=== PATIENT | male | born 1935 | race Asian ===

== ENCOUNTER 2019-10-02 19:11 | Inpatient (IN) | payer OTHER, MEDICARE ==
[~2019-10-02] VITALS: Ht 170.2 cm; Wt 61.2 kg
[2019-10-02 19:31] LABS: BASOPHILS % (AUTO) 0.3 % (0.0-2.0); EOSINOPHILS % (AUTO) 0.2 % (0.0-7.0); HEMATOCRIT 31.3 % (36.7-47.1); HEMOGLOBIN 10.6 g/dL (12.5-16.3); LYMPHOCYTES # (AUTO) 0.2 K/uL (20.0-40.0); LYMPHOCYTES % (AUTO) 2.9 % (20.5-51.5); MEAN CORPUSCULAR HEMOGLOBIN 29.8 uug (23.8-33.4); MEAN CORPUSCULAR HGB CONC 34 g/dL (32.5-36.3); MEAN CORPUSCULAR VOLUME 88.4 fL (73.0-96.2); MONOCYTES # (AUTO) 0.3 K/uL (2.0-10.0); MONOCYTES % (AUTO) 4.2 % (0.0-11.0); NEUTROPHILS # (AUTO) 6.6 K/uL (1.8-8.9); NEUTROPHILS % (AUTO) 92.4 % (38.5-71.5); PLATELET COUNT (AUTO) 87 K/uL (152-348); RED BLOOD CELL COUNT(AUTO) 3.54 MIL/uL (4.06-5.63); WHITE BLOOD COUNT (AUTO) 7.2 K/uL (3.6-10.2)
--- NOTE | 2019-10-02 19:43 | NUR ---
Urine collected and sent to lab
[2019-10-02 19:44] LABS: CARBON DIOXIDE 24 mmol/L (21-32); CHLORIDE 101 mmol/L (98-107); CREATININE 1.5 mg/dL (0.6-1.3); GLUCOSE 112 mg/dL (74-106); POTASSIUM 4.4 mmol/L (3.5-5.1); UREA NITROGEN, BLOOD 49 mg/dL (7-18)
[2019-10-02 19:50] LABS: ALANINE AMINOTRANSFERASE 103 U/L (16-63); ALKALINE PHOSPHATASE 596 U/L (50-136); ASPARTATE AMINOTRANSFERASE 139 U/L (15-37); BILIRUBIN,DIRECT 0.5 mg/dL (0.0-0.2); BILIRUBIN,TOTAL 0.9 mg/dL (0.2-1.0); TOTAL PROTEIN, SERUM 6.7 g/dL (6.4-8.2)
[2019-10-02 20:04] LABS: *BILIRUBIN,URIN NEGATIVE (NEGATIVE); *BLOOD, URINE NEGATIVE (NEGATIVE); *CLARITY,URINE CLEAR (CLEAR); *COLOR,URINE YELLOW (YELLOW); *KETONES,URINE NEGATIVE (NEGATIVE); *UROBILINOGEN,URINE 0.2 E.U./dl (NORMAL); LEUKOCYTE ESTERASE ,URINE NEGATIVE (NEGATIVE); NITRITE, URINE NEGATIVE (NEGATIVE); PH,URINE 5.5 (5.0-8.0); UGLUCOSE NEGATIVE (NEGATIVE)
[2019-10-02 20:10] LABS: WBC,URINE NONE SEEN /HPF (0-3)
[2019-10-02 20:11] LABS: BACTERIA,URINE NONE SEEN /HPF (NONE SEEN); RBC,URINE 0-3 /HPF (0-3)
[2019-10-02] MEDS ORDERED: IV NORMAL SALINE 1000 ML BAG IV ONE (20:30)
--- NOTE | 2019-10-02 20:47 | NUR ---
Patient taken to CT scan in stable conditon
[2019-10-02 20:48] LABS: LYMPHOCYTES % (MANUAL) 1 % (20-40); NEUTROPHILS % (MANUAL) 99 % (42-75)
--- NOTE | 2019-10-02 20:54 | NUR ---
Spoke with Imani from [facility] to give clinicals
[2019-10-02] MEDS ORDERED: MEROPENEM 1,000 MG in IV NORMAL SALINE 100 ML IV ONE (21:15)
[2019-10-02] MEDS ORDERED: VANCOMYCIN IV 1,000 MG in IV DEXTROSE 5% 250 ML IV ONE (21:15)
[2019-10-02] MEDS ORDERED: MEROPENEM 1GM/NS 100ML IVPB **ER PYXIS ONLY IV ONE (21:17)
[2019-10-02] MEDS ORDERED: VANCOMYCIN IV 200 ML ONE (21:18)
--- NOTE | 2019-10-02 21:55 | NUR ---
Patient back from CT scan in stable condition
--- NOTE | 2019-10-02 22:08 | NUR ---
Called [facility] for panel placement
--- NOTE | 2019-10-02 23:25 | NUR ---
Vancomycin IV to finish infusing in Telemetry. Yunier PARHAM aware.
[2019-10-03] MEDS ORDERED: MORPHINE SULFATE 2 MG/1 ML DISP.SYRIN IV PRN (00:30)
[2019-10-03] MEDS ORDERED: ACETAMINOPHEN 325 MG TABLET PO PRN (00:30)
[2019-10-03] MEDS ORDERED: ONDANSETRON 4 MG/2 ML VIAL IV PRN (00:30)
[2019-10-03] MEDS ORDERED: PIPERACILLIN/TAZO 2.25 G in IV DEXTROSE 5% 50 ML IV SCH (00:30)
[2019-10-03] MEDS ORDERED: IV D5/ 0.9% NACL 1,000 ML IV SCH (00:30)
[2019-10-03 00:34] VITALS: BP 121/53
[2019-10-03] MEDS ORDERED: PIPERACILLIN/TAZO 2.25 G in IV DEXTROSE 5% 50 ML IV ONE ×2 (02:00→10:00)
[2019-10-03] MEDS ORDERED: PIPERACILLIN/TAZO 2.25 GM VIAL ONE (02:36)
[2019-10-03 04:00] VITALS: BP 120/60
--- NOTE | 2019-10-03 06:39 | NUR ---
Admitted to room 304; accompanied by family; timber spotter phone at bedside; most translation by Estefany Stahl RN; no fever since admission; kept NPO; safety maintained; tolerated iv antibiotics; continue to monitor; safety maintained.
[2019-10-03] MEDS ORDERED: IV D5/ 0.9% NACL 1,000 ML IV PRN (07:05)
[2019-10-03 07:22] LABS: BILIRUBIN,TOTAL 0.8 mg/dL (0.2-1.0); MAGNESIUM 1.9 mg/dL (1.8-2.4); PHOSPHOROUS 2.9 mg/dL (2.5-4.9); TOTAL PROTEIN, SERUM 5.3 g/dL (6.4-8.2)
[2019-10-03 07:30] VITALS: BP 133/51
[2019-10-03 07:31] LABS: THYROID STIMULATING HORMONE 5.447 mIU/mL (0.358-3.740)
[2019-10-03 07:38] LABS: BASOPHILS % (AUTO) 0.1 % (0.0-2.0); EOSINOPHILS % (AUTO) 0.2 % (0.0-7.0); LYMPHOCYTES # (AUTO) 0.3 K/uL (20.0-40.0); LYMPHOCYTES % (AUTO) 3.7 % (20.5-51.5); MEAN CORPUSCULAR HEMOGLOBIN 29.7 uug (23.8-33.4); MEAN CORPUSCULAR HGB CONC 34 g/dL (32.5-36.3); MEAN CORPUSCULAR VOLUME 88.6 fL (73.0-96.2); MONOCYTES # (AUTO) 0.6 K/uL (2.0-10.0); MONOCYTES % (AUTO) 8.5 % (0.0-11.0); NEUTROPHILS # (AUTO) 6.1 K/uL (1.8-8.9); NEUTROPHILS % (AUTO) 87.5 % (38.5-71.5); PLATELET COUNT (AUTO) 69 K/uL (152-348)
--- NOTE | 2019-10-03 08:00 | NUR ---
AWAKE ALERT AND VERBALLY RESPONSIVE, NO SS OF PAIN OR DISTRESS. REMAINS SR ON MONITOR. AFEBRILE. NPO TILL FURTHER ORDERS. IVF AT 75ML/HR
[2019-10-03 08:17] LABS: HEMATOCRIT 25.6 % (36.7-47.1); HEMOGLOBIN 8.6 g/dL (12.5-16.3)
[2019-10-03] MEDS: PANTOPRAZOLE SODIUM 40 MG VIAL IV SCH (08:28)
[2019-10-03 09:20] LABS: BAND % (MANUAL) 2 % (0-10); LYMPHOCYTES % (MANUAL) 2 % (20-40); MONOCYTES % (MANUAL) 5 % (2-10); NEUTROPHILS % (MANUAL) 91 % (42-75)
--- NOTE | 2019-10-03 11:00 | NUR ---
STATUS CHANGE TO [facility]
[2019-10-03] MEDS: POTASSIUM CHLORIDE 20 MEQ TAB.PRT.SR PO SCH ×3 (11:22→16:26)
[2019-10-03 11:30] VITALS: BP 153/58
--- NOTE | 2019-10-03 12:00 | NUR ---
SEEN BY DR VICENTE NOTED LABS WITH ORDERS SEE NOTES
[2019-10-03] MEDS ORDERED: NIFEdipine XL 60 MG TABSR PO SCH ×2 (12:30→20:17)
[2019-10-03 15:35] VITALS: BP 134/57
--- NOTE | 2019-10-03 16:31 | NUR ---
AWAKE ALERT AND VERBALLY RESPONSIVE, REQUIRES TECHNICAL SERVICES ANALYST. PLEASANT AND COOPERATIVE. NO FEVER DURING THE DAY. TOLERATING IV ZOSYN
[2019-10-03] MEDS: PIPERACILLIN/TAZOBACTAM/D5W 3.375 G in PREMIXED 1 EACH IV SCH (17:05)
[2019-10-03 20:01] VITALS: BP 114/48
[2019-10-03] MEDS ORDERED: NIFEdipine XL 60 MG TABSR PO PRN (20:31)
--- NOTE | 2019-10-03 20:33 | NUR ---
PER DAUGHTER REQUEST BEN NUNEZ. DR. VICENTE ORDERED NIFEDIPINE XL 60 MG TO BE ADMINISTERED AT SAME TIME EVERYDAY 12:30PM. IF SBP <140 AT 12:30PM NIFEDIPINE XL 30MG TO BE GIVEN INSTEAD OF NIFEDIPINE XL 60 MG.
--- NOTE | 2019-10-03 20:34 | NUR ---
CONFIRMED WITH MAURO IN PHARMACY ON INPUTTING ORDERS FOR NIFEDIPINE XL 60 MG AND NIFEDIPINE XL 30MG.
[2019-10-04] MEDS: PIPERACILLIN/TAZOBACTAM/D5W 3.375 G in PREMIXED 1 EACH IV SCH ×3 (02:18→17:14)
[2019-10-04 05:16] VITALS: BP 111/50
--- NOTE | 2019-10-04 05:30 | NUR ---
PATIENT V/S STABLE THROUGHOUT NIGHT. NO S/S OF ACUTE DISTRESS. BED IN LOWEST POSITION, SIDE RAILS UPX2, BED ALARM ON. ALL MEDICATIONS ADMINISTERED. WILL CONTINUE TO MONITOR AND ENDORSE ACCORDINGLY.
[2019-10-04] MEDS: LEVOTHYROXINE SODIUM 50 MCG TABLET PO SCH (06:01)
[2019-10-04 06:15] LABS: BASOPHILS % (AUTO) 0.1 % (0.0-2.0); EOSINOPHILS % (AUTO) 0.2 % (0.0-7.0); HEMATOCRIT 27.2 % (36.7-47.1); LYMPHOCYTES # (AUTO) 0.7 K/uL (20.0-40.0); MEAN CORPUSCULAR HEMOGLOBIN 29.7 uug (23.8-33.4); MEAN CORPUSCULAR HGB CONC 33 g/dL (32.5-36.3); MEAN CORPUSCULAR VOLUME 89.8 fL (73.0-96.2); MONOCYTES # (AUTO) 0.9 K/uL (2.0-10.0); MONOCYTES % (AUTO) 12.2 % (0.0-11.0); NEUTROPHILS # (AUTO) 6.1 K/uL (1.8-8.9); NEUTROPHILS % (AUTO) 78.5 % (38.5-71.5); PLATELET COUNT (AUTO) 71 K/uL (152-348); RED BLOOD CELL COUNT(AUTO) 3.02 MIL/uL (4.06-5.63); WHITE BLOOD COUNT (AUTO) 7.7 K/uL (3.6-10.2)
[2019-10-04 06:40] LABS: POTASSIUM 3.4 mmol/L (3.5-5.1)
--- NOTE | 2019-10-04 06:51 | NUR ---
critical lab value reported for Mg 1.7 Addendum: 10/04/19 at 0704 by DEBBIE FOSS RN INCORRECT PATIENT
--- NOTE | 2019-10-04 07:04 | NUR ---
DR. VICENTE ORDERS FOR NIFEDIPINE XL 60MG AND XL 30MG ENDORSED TO ONCOMING NURSE.
[2019-10-04] MEDS: FAMOTIDINE 20 MG TABLET PO SCH (08:02)
[2019-10-04] MEDS: DOCUSATE SODIUM 100 MG CAPSULE PO SCH (08:02)
[2019-10-04] MEDS: HYDROXYCHLOROQUINE SULFATE 200 MG TABLET PO SCH (08:02)
[2019-10-04] MEDS: PANTOPRAZOLE SODIUM 40 MG VIAL IV SCH (08:13)
[2019-10-04] MEDS ORDERED: POTASSIUM CHLORIDE 20 MEQ TAB.PRT.SR PO ONE (08:15)
[2019-10-04] MEDS ORDERED: CLOPIDOGREL 75 MG TABLET PO SCH (09:00)
[2019-10-04] MEDS ORDERED: PANTOPRAZOLE SODIUM 40 MG VIAL IV SCH (09:00)
[2019-10-04] MEDS: CLOPIDOGREL 75 MG TABLET PO SCH (09:01)
[2019-10-04 09:39] LABS: BILIRUBIN,DIRECT 0.2 mg/dL (0.0-0.2); BILIRUBIN,TOTAL 0.6 mg/dL (0.2-1.0); TOTAL PROTEIN, SERUM 5.2 g/dL (6.4-8.2)
[2019-10-04] MEDS: POTASSIUM PHOSPHATE MM 5 MMOL in IV DEXTROSE 5% 100 ML IV SCH ×4 (10:44→15:33)
[2019-10-04 11:28] VITALS: BP 114/53
[2019-10-04] MEDS ORDERED: NIFEdipine XL 60 MG TABSR PO PRN (12:30)
[2019-10-04] MEDS ORDERED: NIFEdipine XL 30 MG TABSR PO PRN (12:30)
[2019-10-04 16:15] VITALS: BP 124/62
--- NOTE | 2019-10-04 19:30 | NUR ---
RECEIVED PT IN NO ACUTE DISTRESS. IV INTACT. SAFETY AND COMFORT PROVIDED. WILL CONTINUE TO MONITOR.
[2019-10-04 21:21] VITALS: BP 130/53
--- NOTE | 2019-10-04 21:24 | NUR ---
RECEIVED PT IN NO ACUTE DISTRESS. IV INTACT. SAFETY AND COMFORT PROVIDED. WILL CONTINUE TO MONITOR.
--- NOTE | 2019-10-04 21:50 | NUR ---
FAMILY DOESN'T WANT ME TO GIVE BLOOD PRESSURE MEDICATION TO PT. CHARGE NURSE AWARE. PT IN NO ACUTE DISTRESS. WILL CONTINUE TO MONITOR.
[2019-10-05] MEDS: PIPERACILLIN/TAZOBACTAM/D5W 3.375 G in PREMIXED 1 EACH IV SCH ×3 (01:21→19:38)
[2019-10-05 04:37] VITALS: BP 138/65
[2019-10-05 05:45] LABS: BASOPHILS % (AUTO) 0.2 % (0.0-2.0); EOSINOPHILS % (AUTO) 0.4 % (0.0-7.0); HEMATOCRIT 27.1 % (36.7-47.1); HEMOGLOBIN 9.2 g/dL (12.5-16.3); LYMPHOCYTES # (AUTO) 0.9 K/uL (20.0-40.0); LYMPHOCYTES % (AUTO) 9.5 % (20.5-51.5); MEAN CORPUSCULAR HEMOGLOBIN 29.7 uug (23.8-33.4); MEAN CORPUSCULAR HGB CONC 34 g/dL (32.5-36.3); MEAN CORPUSCULAR VOLUME 87.9 fL (73.0-96.2); MONOCYTES # (AUTO) 1.5 K/uL (2.0-10.0); MONOCYTES % (AUTO) 15.5 % (0.0-11.0); NEUTROPHILS # (AUTO) 7.1 K/uL (1.8-8.9); NEUTROPHILS % (AUTO) 74.4 % (38.5-71.5); RED BLOOD CELL COUNT(AUTO) 3.08 MIL/uL (4.06-5.63); WHITE BLOOD COUNT (AUTO) 9.6 K/uL (3.6-10.2)
[2019-10-05 05:54] LABS: PLATELET COUNT (AUTO) 84 K/uL (152-348)
[2019-10-05 05:58] LABS: BILIRUBIN,DIRECT 0.3 mg/dL (0.0-0.2); BILIRUBIN,TOTAL 0.8 mg/dL (0.2-1.0); PHOSPHOROUS 3.1 mg/dL (2.5-4.9); POTASSIUM 3.8 mmol/L (3.5-5.1); TOTAL PROTEIN, SERUM 5.1 g/dL (6.4-8.2)
--- NOTE | 2019-10-05 06:13 | NUR ---
PT SLEPT INTERMITTENTLY. PT IN NO ACUTE DISTRESS. IV INTACT. PRESCRIBED MEDICATION GIVEN AND PT TOLERATED IT WELL. IMITREX GIVEN. .PT TOLERATED IT WELL.. PT REQUESTING IV BENADRYL. SAFETY AND COMFORT PROVIDED. WILL ENDORSE TO INCOMING NURSE FOR CONTINUITY OF CARE. Addendum: 10/05/19 at 0614 by KINA BURGESS RN WRONG PT
--- NOTE | 2019-10-05 06:14 | NUR ---
PT SLEPT INTERMITTENTLY. PT IN NO ACUTE DISTRESS. IV INTACT. PRESCRIBED MEDICATION GIVEN AND PT TOLERATED IT WELL. PT COMPLIANT WITH CARE.SAFETY AND COMFORT PROVIDED. WILL ENDORSE TO INCOMING NURSE FOR CONTINUITY OF CARE.
[2019-10-05] MEDS: LEVOTHYROXINE SODIUM 50 MCG TABLET PO SCH (06:18)
[2019-10-05 06:46] LABS: LYMPHOCYTES % (MANUAL) 9 % (20-40); MONOCYTES % (MANUAL) 17 % (2-10); NEUTROPHILS % (MANUAL) 74 % (42-75)
--- NOTE | 2019-10-05 07:20 | NUR ---
RECEIVED PATIENT IN BED AWAKE AND ALERT. NO C/O PAIN AND NO S/S OF ACUTE DISTRESS NOTED AT THIS TIME. KEPT CLEAN AND DRY AT ALL TIMES. CALL LIGHT WITHIN REACH, SAFETY AND COMFORT PROVIDED. CONTINUE TO MONITOR.
[2019-10-05] MEDS: DOCUSATE SODIUM 100 MG CAPSULE PO SCH ×2 (08:16→08:48)
[2019-10-05] MEDS: FAMOTIDINE 20 MG TABLET PO SCH ×2 (08:16→08:49)
[2019-10-05] MEDS: CLOPIDOGREL 75 MG TABLET PO SCH ×2 (08:16→08:49)
[2019-10-05] MEDS: HYDROXYCHLOROQUINE SULFATE 200 MG TABLET PO SCH ×2 (08:16→08:49)
[2019-10-05] MEDS: CLONIDINE HCL 0.1 MG TABLET PO PRN ×2 (13:37→20:15)
[2019-10-05 15:43] VITALS: BP 151/52
--- NOTE | 2019-10-05 18:48 | NUR ---
DR. VICENTE, DISCONTINUE THE DISCHARGE TODAY.
--- NOTE | 2019-10-05 19:45 | NUR ---
PATIENT ALERT ORIENTED, SPEAK MANDARIN BUT UNDERSTAND SAO TOMEAN. FAMILY AT BEDSIDE, PATIENT HAS ELEVATED BP, DENIES PAIN AND DISCOMFORT. PATIENT WILL BE MEDICATED FOR ELEVATED BP ORDERED. PATIENT CONTINENT OF BLADDER, USES URINAL FOR BLADDER ELIMINATIONS. CALL LIGHT WITHIN REACH.
[2019-10-05 20:15] VITALS: BP 165/118
--- NOTE | 2019-10-05 20:15 | NUR ---
PATIENT BP ELEVATED, 165/118, PATIENT ASYMPTOMATIC, NO HEADACHES, NO DIZZINESS, NO VOMITING NOTED. PATIENT WAS GIVEN CLONIDINE 0.1MG PO ORDERED. WILL CONT TO MONITOR.
[2019-10-05 20:58] VITALS: BP 158/67
--- NOTE | 2019-10-05 21:00 | NUR ---
PATIENT CURRENT BP 158/67 HR 77, O2 SAT 98% RA, T-98.2, PATIENT DENIES PAIN, NO RECTAL BLEEDING NOTED AT THIS TIME. PATIENT BED PADS WAS CHANGED DUE SOILAGE, CONT TO MONITOR.
[2019-10-06] MEDS: PIPERACILLIN/TAZOBACTAM/D5W 3.375 G in PREMIXED 1 EACH IV SCH (02:00)
--- NOTE | 2019-10-06 05:14 | NUR ---
PATIENT ALERT ORIENTED, DENIES PAIN AT THIS TIME. PATIENT ASSISTED WITH BEDSIDE COMMODE FOR BOWEL ELIMINATIONS. PATIENT HAS MEDIUM AMOUNT OF BM WITH SMALL AMOUNT OF BLOOD TINGE COLOR FLUIDS. PATIENT HAS MULTIPLE EPISODE OF RECTAL DISCHARGE COLOR PALE COLOR BLOOD IN SMALL AMOUNT. PATIENT RENDERED GOOD MIRTHA CARE. CONT TO MONITOR.
[2019-10-06] MEDS: LEVOTHYROXINE SODIUM 50 MCG TABLET PO SCH (06:29)
--- NOTE | 2019-10-06 07:15 | NUR ---
Received patient in bed, awake and verbally responsive. No signs of distress noted. No SOB. No complain of Pain or discomfort. kept the call light within easy reach. kept the bed in lowest position. Will continue to monitor.
[2019-10-06] MEDS: DOCUSATE SODIUM 100 MG CAPSULE PO SCH (08:12)
[2019-10-06] MEDS: FAMOTIDINE 20 MG TABLET PO SCH (08:12)
[2019-10-06] MEDS: CLOPIDOGREL 75 MG TABLET PO SCH (08:13)
[2019-10-06 08:16] VITALS: BP 156/60
[2019-10-06] MEDS: CLONIDINE HCL 0.1 MG TABLET PO PRN (08:16)
[2019-10-06] MEDS: HYDROXYCHLOROQUINE SULFATE 200 MG TABLET PO SCH (08:57)
--- NOTE | 2019-10-06 10:53 | NUR ---
Patient in Bed, awake and verbally responsive, family at bedside. No signs of Distress noted. No SOB. No complain of Pain or discomfort. Patient with Order to be discharge to Home today, Family is aware, Discharge instruction given to patient and daughter (RP) and verbalized Understanding. All belongings was sent and signed with patient. Removed IV site and wrist band. Patient left in stable condition via private car.
== END 2019-10-06 10:55 | disposition home health service (06) | DRG 720 ==
LOC: ER 19:13 → TELE3 23:13 → UNDOADMIN 23:13 → TELE-TD3 23:14 → MEDSURG3 10-03 10:02
PROVIDERS: ADMIT Internal Medicine; ATTEND Internal Medicine
DX: A41.51 Sepsis due to Escherichia coli [E. coli] (principal); N17.0 Acute kidney failure with tubular necrosis; E43 Unspecified severe protein-calorie malnutrition; G93.41 Metabolic encephalopathy; C78.7 Secondary malignant neoplasm of liver and intrahepatic bile duct; C20 Malignant neoplasm of rectum; D63.8 Anemia in other chronic diseases classified elsewhere; D68.59 Other primary thrombophilia; K52.9 Noninfective gastroenteritis and colitis, unspecified; I69.341 Monoplegia of lower limb following cerebral infarction affecting right dominant side; M06.9 Rheumatoid arthritis, unspecified; R65.20 Severe sepsis without septic shock; E78.5 Hyperlipidemia, unspecified; E03.9 Hypothyroidism, unspecified; Z79.899 Other long term (current) drug therapy; I49.3 Ventricular premature depolarization; Z68.21 Body mass index [BMI] 21.0-21.9, adult; Z79.890 Hormone replacement therapy; Z79.82 Long term (current) use of aspirin; E87.6 Hypokalemia; Z79.02 Long term (current) use of antithrombotics/antiplatelets; M62.50 Muscle wasting and atrophy, not elsewhere classified, unspecified site; M19.90 Unspecified osteoarthritis, unspecified site
CPT/HCPCS: 36415; 70030-TC; 71045; 71250; 83605; 83690; 83735; 84100; 84443; 85025; 87040; 87077; 87086; 87400; 93005; A4663; C9113; G0378; J2185; J2543; J3370; J3490; J7030; J7040; J7042; J7060

== ENCOUNTER 2019-10-07 19:21 | Inpatient (IN) | payer OTHER, MEDICARE ==
[~2019-10-07] VITALS: Ht 172.7 cm; Wt 61.8 kg
[~2019-10-07 19:21] MED LIST: DOCU100C36 PO; FAMO-132 PO; LEVO500T2 PO; LEVO50TA8 PO; NIFE-60 PO; NIFE60TA83 PO
--- NOTE | 2019-10-07 19:40 | NUR ---
Dr. Ramirez at bedside for MSE.
--- NOTE | 2019-10-07 20:04 | NUR ---
Pt refused chest xray. made aware.
[2019-10-07 20:06] LABS: *BILIRUBIN,URIN NEGATIVE (NEGATIVE); *BLOOD, URINE NEGATIVE (NEGATIVE); *CLARITY,URINE CLEAR (CLEAR); *COLOR,URINE DARK YELLOW (YELLOW); *KETONES,URINE NEGATIVE (NEGATIVE); *UROBILINOGEN,URINE 0.2 E.U./dl (NORMAL); LEUKOCYTE ESTERASE ,URINE NEGATIVE (NEGATIVE); NITRITE, URINE NEGATIVE (NEGATIVE); PH,URINE 5.5 (5.0-8.0); UGLUCOSE NEGATIVE (NEGATIVE)
[2019-10-07 20:07] LABS: BASOPHILS % (AUTO) 0.3 % (0.0-2.0); EOSINOPHILS % (AUTO) 0.5 % (0.0-7.0); HEMOGLOBIN 9.4 g/dL (12.5-16.3); LYMPHOCYTES # (AUTO) 0.7 K/uL (20.0-40.0); LYMPHOCYTES % (AUTO) 7.8 % (20.5-51.5); MEAN CORPUSCULAR HEMOGLOBIN 29.4 uug (23.8-33.4); MEAN CORPUSCULAR HGB CONC 34 g/dL (32.5-36.3); MEAN CORPUSCULAR VOLUME 87.8 fL (73.0-96.2); MONOCYTES # (AUTO) 0.6 K/uL (2.0-10.0); MONOCYTES % (AUTO) 7.3 % (0.0-11.0); NEUTROPHILS # (AUTO) 7.1 K/uL (1.8-8.9); NEUTROPHILS % (AUTO) 84.1 % (38.5-71.5); PLATELET COUNT (AUTO) 174 K/uL (152-348); RED BLOOD CELL COUNT(AUTO) 3.19 MIL/uL (4.06-5.63); WHITE BLOOD COUNT (AUTO) 8.5 K/uL (3.6-10.2)
[2019-10-07 20:11] LABS: CARBON DIOXIDE 22 mmol/L (21-32); CHLORIDE 104 mmol/L (98-107); CREATININE 1.7 mg/dL (0.6-1.3); GLUCOSE 102 mg/dL (74-106); POTASSIUM 4.2 mmol/L (3.5-5.1); UREA NITROGEN, BLOOD 40 mg/dL (7-18)
[2019-10-07 20:16] LABS: COARSE GRANULAR CASTS,URINE 0-3 /LPF; MUCUS,URINE MANY /LPF (0-FEW); RBC,URINE 0-3 /HPF (0-3); SQUAMOUS EPITHELIAL CELL,UR FEW /HPF (NONE SEEN); WBC,URINE 0-3 /HPF (0-3)
--- NOTE | 2019-10-07 20:18 | NUR ---
Ultrasound at bedside.
[2019-10-07 20:23] LABS: ALANINE AMINOTRANSFERASE 77 U/L (16-63); ALKALINE PHOSPHATASE 970 U/L (50-136); ASPARTATE AMINOTRANSFERASE 130 U/L (15-37); BILIRUBIN,DIRECT 0.7 mg/dL (0.0-0.2); BILIRUBIN,TOTAL 1.1 mg/dL (0.2-1.0); TOTAL PROTEIN, SERUM 6.2 g/dL (6.4-8.2)
--- NOTE | 2019-10-07 20:47 | NUR ---
Dr. Ramirez on panel call with Dr. Alba. Patient accepted for admission to [facility], diagnosis: generalized weakness. Insurance authorization pending.
[2019-10-07] MEDS ORDERED: CEFTRIAXONE 1 G VIAL ONE (20:58)
[2019-10-07] MEDS ORDERED: CEFTRIAXONE 1 G in IV DEXTROSE 5% 50 ML IV ONE (21:00)
--- NOTE | 2019-10-07 21:03 | NUR ---
Received authorization for admission from [employer], spoke with Hazel, did not give authorization number.
--- NOTE | 2019-10-07 21:18 | NUR ---
Called [facility] transfer center, spoke with Malvin, faxed pt face sheet and clinical summary to
--- NOTE | 2019-10-07 21:30 | NUR ---
Per daughter, will stay in [place], will try to arrange transfer to [facility] tomorrow.
--- NOTE | 2019-10-07 21:42 | NUR ---
Report given to Sarah PARHAM Medsurg.
--- NOTE | 2019-10-07 22:10 | NUR ---
Patient received into care from ER via [facility] with daughter at bedside. Patient is alert/oriented x3 but speaks only mandarin. Patient has no complaints of pain or discomfort at this time and has no s/s of acute distress or discomfort noted/observed by nurse. All safety and fall precaution measures are in place. Call light and personal items are within reach at all times. Will continue to monitor and assess.
[2019-10-07] MEDS ORDERED: ONDANSETRON 4 MG/2 ML VIAL IV PRN (22:15)
[2019-10-07] MEDS ORDERED: Z GUARD REMEDY PASTE 57 GM TUBE TOP PRN (22:15)
[2019-10-07] MEDS ORDERED: HYDROCODONE/APAP 5-325MG TABLET PO PRN (22:15)
[2019-10-07] MEDS ORDERED: MAGNESIUM HYDROXIDE 30 ML LIQUID UDC PO PRN (22:15)
[2019-10-07] MEDS ORDERED: ACETAMINOPHEN 325 MG TABLET PO PRN (22:15)
[2019-10-07 22:21] VITALS: BP 107/71
[2019-10-08] MEDS: IV NS 1000 ML 1,000 ML IV PRN ×2 (01:27→16:08)
[2019-10-08 04:47] VITALS: BP 173/71
[2019-10-08 06:12] VITALS: BP 173/71
[2019-10-08] MEDS: LEVOTHYROXINE SODIUM 50 MCG TABLET PO SCH ×3 (07:00→10:32)
[2019-10-08 07:02] LABS: CARBON DIOXIDE 21 mmol/L (21-32); CHLORIDE 104 mmol/L (98-107); CREATININE 1.4 mg/dL (0.6-1.3); GLUCOSE 77 mg/dL (74-106); MAGNESIUM 2.3 mg/dL (1.8-2.4); PHOSPHOROUS 4.2 mg/dL (2.5-4.9); POTASSIUM 4.2 mmol/L (3.5-5.1); UREA NITROGEN, BLOOD 37 mg/dL (7-18)
[2019-10-08 07:27] LABS: BASOPHILS % (AUTO) 0.4 % (0.0-2.0); EOSINOPHILS % (AUTO) 0.5 % (0.0-7.0); LYMPHOCYTES # (AUTO) 0.9 K/uL (20.0-40.0); LYMPHOCYTES % (AUTO) 11.6 % (20.5-51.5); MEAN CORPUSCULAR HEMOGLOBIN 29.7 uug (23.8-33.4); MEAN CORPUSCULAR HGB CONC 34 g/dL (32.5-36.3); MEAN CORPUSCULAR VOLUME 87.5 fL (73.0-96.2); MONOCYTES # (AUTO) 0.7 K/uL (2.0-10.0); MONOCYTES % (AUTO) 8.2 % (0.0-11.0); NEUTROPHILS # (AUTO) 6.4 K/uL (1.8-8.9); NEUTROPHILS % (AUTO) 79.3 % (38.5-71.5); PLATELET COUNT (AUTO) 163 K/uL (152-348); RED BLOOD CELL COUNT(AUTO) 2.71 MIL/uL (4.06-5.63); WHITE BLOOD COUNT (AUTO) 8.1 K/uL (3.6-10.2)
[2019-10-08 07:30] LABS: HEMATOCRIT 23.7 % (36.7-47.1)
--- NOTE | 2019-10-08 07:49 | NUR ---
Patient refused scheduled levothyroxin and provided a prewritten note that stated he will "not eat food or take drugs without daughter present." Patient is mandarin speaking only.
[2019-10-08] MEDS ORDERED: CLONIDINE HCL 0.1 MG TABLET PO PRN (08:15)
[2019-10-08] MEDS: FAMOTIDINE 20 MG TABLET PO SCH (09:00)
[2019-10-08] MEDS: DOCUSATE SODIUM 100 MG CAPSULE PO SCH (09:00)
[2019-10-08] MEDS ORDERED: levoFLOXacin 500 MG TABLET PO ONE (09:00)
[2019-10-08] MEDS ORDERED: levoFLOXacin 500 MG TABLET PO SCH (09:00)
[2019-10-08] MEDS: NIFEdipine XL 30 MG TABSR PO SCH (10:06)
[2019-10-08 11:03] VITALS: BP 116/67
[2019-10-08 15:09] VITALS: BP 157/60
--- NOTE | 2019-10-08 18:27 | NUR ---
No changes to Pt status, VSS, no acute distress or pain. Pt compliant with medications and care, as long as daughter is present. Pt assisted to BSC for soft BM x1. Right forearm 22 randy flushed and patent with NS 75ml/hr running. All comfort and safety measures implemented. Call light within reach, will continue to monitor and endorse to oncoming manufacturing shift supervisor.
--- NOTE | 2019-10-08 19:47 | NUR ---
Received full SBAR report from AM nurse. Pt is in bed at this time, with daughter at bedside. No signs of pain. Denies any discomfort as well. Appears alert and oriented, mainly portuguese speaking. Dtr is providing translation while she is here, blue phone at bedside. Disease process reviewed with dtr, and verbalized understanding. Fall and safety precautions maintained. Call light within reach. Partial linen change done, and repositioned patient on comfortable position. Will continue to monitor.
[2019-10-08 20:02] VITALS: BP 139/62
[2019-10-09 04:28] VITALS: BP 137/58
[2019-10-09] MEDS: LEVOTHYROXINE SODIUM 50 MCG TABLET PO SCH (06:01)
[2019-10-09] MEDS: IV NS 1000 ML 1,000 ML IV PRN (06:01)
[2019-10-09] MEDS: NIFEdipine XL 30 MG TABSR PO SCH (08:48)
[2019-10-09] MEDS: DOCUSATE SODIUM 100 MG CAPSULE PO SCH (08:54)
[2019-10-09] MEDS: FAMOTIDINE 20 MG TABLET PO SCH (08:55)
[2019-10-09] MEDS ORDERED: levoFLOXacin 250 MG TABLET PO SCH (09:00)
--- NOTE | 2019-10-09 09:10 | NUR ---
Patient is alert, sitting on bed, eating breakfast, not in any acute distress. He denies any pain or discomfort. Daughter Traci at bedside providing translation. Needs attended to promptly. Call light and frequently used items placed within reach.
[2019-10-09 10:20] LABS: BASOPHILS % (AUTO) 0.3 % (0.0-2.0); LYMPHOCYTES # (AUTO) 0.5 K/uL (20.0-40.0); MONOCYTES # (AUTO) 0.5 K/uL (2.0-10.0)
[2019-10-09 10:26] LABS: EOSINOPHILS % (AUTO) 0.3 % (0.0-7.0); HEMATOCRIT 23.9 % (36.7-47.1); MEAN CORPUSCULAR HEMOGLOBIN 29.5 uug (23.8-33.4); MEAN CORPUSCULAR HGB CONC 34 g/dL (32.5-36.3); MEAN CORPUSCULAR VOLUME 87.8 fL (73.0-96.2); MONOCYTES % (AUTO) 6.8 % (0.0-11.0); NEUTROPHILS # (AUTO) 6.2 K/uL (1.8-8.9); NEUTROPHILS % (AUTO) 85.6 % (38.5-71.5); PLATELET COUNT (AUTO) 218 K/uL (152-348); RED BLOOD CELL COUNT(AUTO) 2.72 MIL/uL (4.06-5.63); WHITE BLOOD COUNT (AUTO) 7.3 K/uL (3.6-10.2)
[2019-10-09 10:44] LABS: CREATININE 1.2 mg/dL (0.6-1.3); PHOSPHOROUS 3.3 mg/dL (2.5-4.9); POTASSIUM 3.6 mmol/L (3.5-5.1)
[2019-10-09 12:00] VITALS: BP 147/62
--- NOTE | 2019-10-09 15:50 | NUR ---
Received discharge order to home with home health from Dr. Alba. Daughter Traci made aware and is agreeable. Discharge instructions provided to Traci with verbalized understanding. All belongings well accounted for. Discharge papers signed by and given to Traci. Patient remains alert, in no acute distress. Vital signs stable. Patient denies any pain or discomfort. Patient picked up by Traci via private car, transferred via wheelchair at 1545.
== END 2019-10-09 16:30 | disposition home health service (06) | DRG 469 ==
LOC: ER 19:27 → MEDSURG3 21:50
PROVIDERS: ADMIT Internal Medicine; ATTEND Internal Medicine
DX: N17.0 Acute kidney failure with tubular necrosis (principal); E43 Unspecified severe protein-calorie malnutrition; G93.41 Metabolic encephalopathy; C78.7 Secondary malignant neoplasm of liver and intrahepatic bile duct; R78.81 Bacteremia; D68.69 Other thrombophilia; A49.8 Other bacterial infections of unspecified site; C20 Malignant neoplasm of rectum; M06.9 Rheumatoid arthritis, unspecified; E03.9 Hypothyroidism, unspecified; E78.5 Hyperlipidemia, unspecified; D64.9 Anemia, unspecified; I69.341 Monoplegia of lower limb following cerebral infarction affecting right dominant side; K52.9 Noninfective gastroenteritis and colitis, unspecified; Z79.890 Hormone replacement therapy; Z79.899 Other long term (current) drug therapy; Z79.02 Long term (current) use of antithrombotics/antiplatelets; I10 Essential (primary) hypertension
CPT/HCPCS: 36415; 70030-TC; 83735; 84100; 85025; 85730; 87040; 87400; 93005; A4663; G0378; J0696; J7030; J7060